=== PATIENT | female | born 1965 | race Two or more races ===

== ENCOUNTER → 2024-06-26 | Emergency (ER) | payer OTHER | END | disposition home or self-care (01) | LOC: ER 15:15 | DX: S92.502A Displaced unspecified fracture of left lesser toe(s), initial encounter for closed fracture (principal); X58.XXXA Exposure to other specified factors, initial encounter; Y93.89 Activity, other specified; Y92.89 Other specified places as the place of occurrence of the external cause; Y99.9 Unspecified external cause status ==